=== PATIENT | female | born 1940 ===

== ENCOUNTER 2017-03-12 13:58 | Emergency (ER) | payer MEDICARE ==
[2017-03-12 14:49] VITALS: BMI 25.8
[2017-03-12 14:52] VITALS: TEMP 98.2; O2SAT 100
--- NOTE | 2017-03-12 15:16 | ED PDOC ---
Arrival/HPI - General Chief Complaint: Abdominal Pain Time Seen by Provider: 03/12/17 14:55 Historian: Patient - History of Present Illness Narrative History of Present Illness (Text): 03/12/17 15:13 76 y/o female, pmh including htn/dm/arthritic, nkda, bib daughter, c/o lt. sided abdominal pain on and off x 5-6 years. Pt has been having lt. lower quadrant pelvic pain for the past 5-6 years, last episode about 3 days ago, no nausea or vomiting, no diarrhea, no cough, no chest pain or shortness of breath , no palpitation, no dizziness, no other medical or psychological complaints. Past Medical History - Provider Review Nursing Documentation Reviewed: Yes - Infectious Disease Hx of Infectious Diseases: None - Cardiac Hx Hypertension: Yes - Endocrine/Metabolic Hx Diabetes Mellitus Type 2: Yes - Psychiatric Hx Substance Use: No - Surgical History Hx Hysterectomy: Yes - Anesthesia Hx Anesthesia: Yes Hx Anesthesia Reactions: No Hx Malignant Hyperthermia: No Family/Social History - Physician Review Nursing Documentation Reviewed: Yes Family/Social History: Unknown Family HX Smoking Status: Never Smoked Hx Alcohol Use: No Hx Substance Use: No Allergies/Home Meds Allergies/Adverse Reactions: Allergies shrimp Allergy (Verified 03/12/17 14:49) RASH Review of Systems - Review of Systems Constitutional: absent: Fatigue, Fevers Respiratory: absent: SOB, Cough, Sputum Cardiovascular: absent: Chest Pain, Palpitations Gastrointestinal: Abdominal Pain. absent: Diarrhea, Nausea, Vomiting Genitourinary Female: absent: Dysuria, Frequency Musculoskeletal: absent: Arthralgias Neurological: absent: Headache, Dizziness, Focal Weakness Physical Exam Vital Signs Reviewed: Yes Vital Signs Temp Pulse Resp BP Pulse Ox 03/12/17 16:46 69 18 158/69 H 100 03/12/17 15:34 74 18 165/74 H 100 03/12/17 14:52 98.2 F 84 18 167/76 H 100 Temperature: Afebrile Blood Pressure: Hypertensive Pulse: Regular Respiratory Rate: Normal Appearance: Positive for: Well-Appearing, Non-Toxic, Comfortable Pain Distress: Mild Mental Status: Positive for: Alert and Oriented X 3 - Systems Exam Head: Present: Atraumatic, Normocephalic Pupils: Present: PERRL Extroacular Muscles: Present: EOMI Conjunctiva: Present: Normal Mouth: Present: Moist Mucous Membranes Neck: Present: Normal Range of Motion Respiratory/Chest: Present: Clear to Auscultation, Good Air Exchange. No: Respiratory Distress, Accessory Muscle Use Cardiovascular: Present: Regular Rate and Rhythm, Normal S1, S2. No: Murmurs Abdomen: Present: Tenderness (mild +ttp on the lt. middle/lower quadrant region. ), Normal Bowel Sounds. No: Distention, Peritoneal Signs, Rebound, Guarding Genitourinary/Pelvic Exam: Present: Other (Pt. deferred. ) Back: Present: Normal Inspection. No: CVA Tenderness, Midline Tenderness Upper Extremity: Present: Normal Inspection. No: Cyanosis, Edema Lower Extremity: Present: Normal Inspection. No: Edema Neurological: Present: GCS=15, Speech Normal, Motor Func Grossly Intact, Gait Normal, Memory Normal Skin: Present: Warm, Dry, Normal Color. No: Rashes Psychiatric: Present: Alert, Oriented x 3, Normal Insight, Normal Concentration Medical Decision Making ED Course and Treatment: 03/12/17 15:16 -labs/lipase/ua -EKG -CT abdomen and pelvis with IV contrast -Transvaginal sonogram -IVF -observe and reassess 03/12/17 16:22 -Pt. declined transvaginal, will change to pelvic sonogram. 03/12/17 20:26 -EKG: NSR @ 74 BPM, no ST elevation or depression, no T wave inversion. -Labs are non-significant -UA show mild +UTI -Pelvic sonogram is limited study, recommend transvaginal but the patient declined as she has no pain now. -CT Abdomen and pelvis show diverticula with colitis vs. diverticulitis. -Cipro (adverse reaction including possible Achilles tendon rupture explained to the patient which she accepts the risk) and flagyl ordered. -I offered transvaginal sonogram and pelvic examination again which she declined , stated that she has no pain now. -I explained the entire CT results with the patient and the family members. -Discharge home with pepcid, cipro, flagyl, stay hydrated, high fiber diet (eat more fruits and vegatables), follow up with your own pmd and GI within 2 days, return to the ER for any new or worsening signs or symptoms. - Lab Interpretations Lab Results: 03/12/17 15:37 03/12/17 17:05 Lab Results 03/12/17 17:05: Sodium 142, Potassium 4.6, Chloride 105, Carbon Dioxide 25, Anion Gap 17, BUN 9, Creatinine 0.6, Est GFR ( Amer) > 60, Est GFR (Non- Af Amer) > 60, Random Glucose 111 H, Calcium 9.4, Total Bilirubin 1.0, AST 63 H , ALT 41, Alkaline Phosphatase 127, Lactate Dehydrogenase 582, Total Creatine Kinase 79, Troponin I < 0.01, Total Protein 8.2, Albumin 4.4, Globulin 3.8, Albumin/Globulin Ratio 1.2, Lipase 58 03/12/17 15:37: Urine Color Straw, Urine Appearance Sl cloudy, Urine pH 6.0, Ur Specific [place] <= 1.005, Urine Protein Negative, Urine Glucose (UA) Negative, Urine Ketones Negative, Urine Blood Negative, Urine Nitrate Negative, Urine Bilirubin Negative, Urine Urobilinogen 0.2, Ur Leukocyte Esterase Small H, Urine RBC Negative, Urine WBC 1 - 3, Ur Epithelial Cells 1 - 3, Urine Bacteria Many 03/12/17 15:37: WBC 11.0, RBC 4.60, Hgb 12.7, Hct 37.8, MCV 82.2, MCH 27.6, MCHC 33.6, RDW 13.6, Plt Count 246, MPV 9.6, Gran % 66.2, Lymph % (Auto) 23.2, [place] % (Auto) 8.5 H, Eos % (Auto) 1.9, Baso % (Auto) 0.2, Gran # 7.27 H, Lymph # 2.6, [place] # 0.9 H, Eos # 0.2, Baso # 0.02 I have reviewed the lab results: Yes Interpretation: Abnormal lab values (+UTI) - RAD Interpretation Radiology Orders: 03/12/17 15:12 ABD & PELVIS IV CONTRAST ONLY [CT] Stat PELVIS ULTRASOUND [US] Stat Pelvic sonogram: HISTORY: Lt. sided pelvic pain x 5-6 years COMPARISON: None available. TECHNIQUE: Transabdominal pelvic ultrasound FINDINGS: Examination limited by bowel gas. UTERUS: Measures 6.7 x 2.0 x 2.9 cm. ENDOMETRIUM: Measures approximately 3 mm in diameter. CERVIX: Cervix length measures approximately 2.9 cm. RIGHT OVARY: Measures approximately 2.2 x 1.6 x 1.4 cm. Question presence of a right ovarian cyst measuring approximately 1 cm in maximum dimension; not adequately visualized on the submitted views. LEFT OVARY: Not visualized. FREE FLUID: No significant free fluid noted. OTHER FINDINGS: None. IMPRESSION: Examination markedly limited due to bowel gas. The left ovary is not visualized. Limited visualization of the right ovary. Question presence of 1 cm cyst. Recommend transvaginal ultrasound for further evaluation. [employer] Worker: Radiologist - EKG Interpretation EKG Interpretation (Text): 03/12/17 15:34 NSR @ 74 BPM, no ST elevation or depression, no T wave inversion. Interpreted by ED Physician: Yes Type: 12 lead EKG Comparison: No previous EKG avail. - Medication Orders Current Medication Orders: Discontinued Medications Ciprofloxacin (Cipro) 500 mg PO ONCE STA PRN Reason: Protocol Stop: 03/12/17 20:21 Iohexol (Omnipaque 350 100 Ml) Confirm Administered Dose 350 mg .ROUTE .STK-MED ONE Stop: 03/12/17 18:48 Metronidazole (Flagyl) 500 mg PO STAT STA PRN Reason: Protocol Stop: 03/12/17 20:21 - PA / MANUAL ARTS THERAPIST / Resident Statement / has reviewed & agrees with the documentation as recorded. Disposition/Present on Arrival - Present on Arrival Any Indicators Present on Arrival: No History of DVT/PE: No History of Uncontrolled Diabetes: No Urinary Catheter: No History of Decub. Ulcer: No History Surgical Site Infection Following: None - Disposition Have Diagnosis and Disposition been Completed?: Yes Diagnosis: UTI (urinary tract infection), Diverticulitis, Gastritis Disposition: HOME/ ROUTINE Disposition Time: 20:29 Patient Plan: Discharge Patient Problems: Current Active Problems Problem Status Onset UTI (urinary tract infection) Acute Condition: GOOD Additional Instructions: -Discharge home with pepcid, cipro, flagyl, stay hydrated, high fiber diet (eat more fruits and vegatables), follow up with your own pmd and GI within 2 days, return to the ER for any new or worsening signs or symptoms. Prescriptions: Ciprofloxacin [Cipro] 500 mg PO BID #16 tab Famotidine [Pepcid] 1 tab PO BID #20 tab Metronidazole [Flagyl] 500 mg PO TID #30 tablet Referrals: Chioma Mora DO [Primary Care Provider] - Follow up with primary Benito Church MD [Staff Provider] - Follow up with primary Forms: WORK NOTE
[2017-03-12 15:56] LABS: BASO # 0.02 K/mm3 (0.0-2.0); BASO % 0.2 % (0.0-3.0); EOS # 0.2 (0.0-0.7); EOS % 1.9 % (1.5-5.0); GRAN # 7.27 (1.4-6.5); GRAN % 66.2 % (50.0-68.0); HEMOGLOBIN 12.7 gm/dL (12.0-16.0); LYMPH # 2.6 (1.2-3.4); LYMPH % 23.2 % (22.0-35.0); MEAN CELL VOLUME 82.2 fL (80.0-105.0); MEAN CORPUSCULAR HEMOGLOBIN 27.6 pg (25.0-35.0); MEAN CORPUSCULAR HGB CONC 33.6 g/dl (31.0-37.0); MEAN PLATELET VOLUME 9.6 fl (7.0-11.0); MONO # 0.9 (0.1-0.6); MONO % 8.5 % (1.0-6.0); PLATELET COUNT 246 10^3/uL (120.0-450.0); RED CELL DISTRIBUTION WIDTH 13.6 % (11.5-14.5)
[2017-03-12 15:58] LABS: URINE BILIRUBIN NEGATIVE (NEGATIVE); URINE BLOOD NEGATIVE (NEGATIVE); URINE COLOR STRAW (YELLOW); URINE GLUCOSE (UA) NEGATIVE (NEGATIVE); URINE LEUKOCYTE ESTERASE SMALL Leu/uL (NEGATIVE); URINE NITRATE NEGATIVE (NEGATIVE); URINE PROTEIN NEGATIVE mg/dL (<30 mg/dL); URINE UROBILINOGEN 0.2 E.U./dL (<1 E.U./dL)
[2017-03-12 16:13] LABS: URINE APPEARANCE SL CLOUDY (CLEAR)
[2017-03-12 16:14] LABS: URINE BACTERIA MANY (NEG); URINE RBC NEGATIVE /hpf (0-2)
[2017-03-12 17:38] LABS: ALB/GLOB RATIO 1.2 (1.1-1.8); ALBUMIN 4.4 g/dL (3.0-4.8); ALT/SGPT 41 U/L (7-56); AST/SGOT 63 U/L (15-39); BLOOD UREA NITROGEN 9 mg/dL (7-21); CALCIUM 9.4 mg/dL (8.4-10.5); GFR AFRICAN-AMERICAN > 60; GFR NON-AFRICAN AMERICAN > 60; LIPASE 58 U/L (23-300)
[2017-03-12 17:50] LABS: TROPONIN I < 0.01 ng/mL
--- NOTE | 2017-03-12 18:22 | US ---
HISTORY: Lt. sided pelvic pain x 5-6 years COMPARISON: None available. TECHNIQUE: Transabdominal pelvic ultrasound FINDINGS: Examination limited by bowel gas. UTERUS: Measures 6.7 x 2.0 x 2.9 cm. ENDOMETRIUM: Measures approximately 3 mm in diameter. CERVIX: Cervix length measures approximately 2.9 cm. RIGHT OVARY: Measures approximately 2.2 x 1.6 x 1.4 cm. Question presence of a right ovarian cyst measuring approximately 1 cm in maximum dimension; not adequately visualized on the submitted views. LEFT OVARY: Not visualized. FREE FLUID: No significant free fluid noted. OTHER FINDINGS: None. IMPRESSION: Examination markedly limited due to bowel gas. The left ovary is not visualized. Limited visualization of the right ovary. Question presence of 1 cm cyst. Recommend transvaginal ultrasound for further evaluation.
--- NOTE | 2017-03-12 18:36 | CARD ---
APPROVED REPORT EKG Measurement Heart [id number] <Conclusion> Normal sinus rhythm Normal ECG
[2017-03-12] MEDS ORDERED: Iohexol 350 MG/100 ML VIAL ONE (18:47)
--- NOTE | 2017-03-12 20:06 | CT ---
EXAM: CT Abdomen and Pelvis With Intravenous Contrast CLINICAL HISTORY: The patient age is 76 years old and is female; Pain; Abdominal pain; Acute; Additional info: Llq pelvic pain x 5-6 years Facility exam id and description: Ct [id number] abd pelvis iv contrast only TECHNIQUE: Axial computed tomography images of the abdomen and pelvis with intravenous contrast. This CT exam was performed using one or more of the following dose reduction techniques: automated exposure control, adjustment of the mA and/or kV according to patient size, and/or use of iterative reconstruction technique. Coronal and sagittal reformatted images were created and reviewed. CONTRAST: 100 mL of OMNI 350 administered intravenously. EXAM DATE/TIME: 03/12/2017 3:12 PM COMPARISON: US - ABDOMEN COMPLETE 09/16/2015 8:49:24 AM FINDINGS: Lower thorax: There is a small hiatal hernia. ABDOMEN: Liver: There is hypodense fatty infiltration of the liver. Gallbladder and bile ducts: Mild isodensity is visualized within the gallbladder, suggestive of sludge. No discrete gallstones. Pancreas: Normal contour, without acute peripancreatic stranding. Spleen: No splenomegaly. Adrenals: No mass. Kidneys and ureters: There is a small hypodense probable cyst at the midpole the left kidney measuring 1.2 x 0.6 x 0.7 cm. No hydronephrosis bilaterally. Stomach and bowel: Multiple colonic diverticula are identified. There is wall thickening of the sigmoid colon with pericolonic stranding, suggestive of colitis or diverticulitis. Additional pathology cannot be excluded. There is mild wall thickening of the antrum of the stomach, suggestive of gastritis. Appendix: No findings to suggest acute appendicitis. PELVIS: Bladder: No mass. Reproductive: Unremarkable as visualized. ABDOMEN and PELVIS: Intraperitoneal space: No free air. No loculated collection of fluid to suggest abscess. Bones/joints: Hypertrophic degenerative changes are noted within the spine. Osteopenia. Soft tissues: There is a peripherally calcified density within the subcutaneous tissues of the left flank. Vasculature: There is atherosclerotic calcification of the abdominal aorta. No abdominal aortic aneurysm. Lymph nodes: No enlarged lymph nodes. IMPRESSION: 1. Multiple colonic diverticula are identified. There is wall thickening of the sigmoid colon with pericolonic stranding, suggestive of colitis or diverticulitis. Additional pathology cannot be excluded. 2. There is hypodense fatty infiltration of the liver. 3. There is mild wall thickening of the antrum of the stomach, suggestive of gastritis. 4. Additional CT findings described above.
[2017-03-12 20:52] VITALS: BP 153/75; PULSE 72; RESP 17
== END 2017-03-12 21:02 | disposition home or self-care (01) ==
LOC: ED 13:58
DX: N39.0 Urinary tract infection, site not specified (principal); K57.92 Diverticulitis of intestine, part unspecified, without perforation or abscess without bleeding; K29.70 Gastritis, unspecified, without bleeding; E11.9 Type 2 diabetes mellitus without complications; I10 Essential (primary) hypertension
CPT/HCPCS: 74177; 76856; 80053; 81001; 82550; 83615; 83690; 84484; 85025; 93005; 99285; Q9967

== ENCOUNTER 2018-05-05 16:04 | Emergency (ER) | payer MEDICARE ==
[2018-05-05 16:04] VITALS: BMI 25.8
[2018-05-05 16:53] VITALS: TEMP 98.3
--- NOTE | 2018-05-05 17:05 | ED PDOC ---
Arrival/HPI - General Chief Complaint: Shortness Of Breath Time Seen by Provider: 05/05/18 16:48 Historian: Patient - History of Present Illness Narrative History of Present Illness (Text): 05/05/18 16:53 77 year old female, with past medical history of hypertension, diabetes and arthritis, presents to the Emergency department complaining of left sided chest tightness associated with subjective dyspnea since past 2 days. Patient informs unchanged symptoms prompting her to present to the Emergency department for medical evaluation. Patient denies any cardiac history. Patient denies any fevers, chills, headache, dizziness, cough, abdominal pain, nausea, vomiting, diarrhea, back pain, neck pain, or any other complaints. Time/Duration: < week (2 days) Symptom Onset: Gradual Symptom Course: Unchanged Quality: Tightness Activities at Onset: Light Context: Home Past Medical History - Provider Review Nursing Documentation Reviewed: Yes - Infectious Disease Hx of Infectious Diseases: None - Reproductive Menopause: Yes - Cardiac Hx Hypertension: Yes - Endocrine/Metabolic Hx Diabetes Mellitus Type 2: Yes - Psychiatric Hx Substance Use: No - Surgical History Hx Hysterectomy: Yes - Anesthesia Hx Anesthesia: Yes Hx Anesthesia Reactions: No Hx Malignant Hyperthermia: No Family/Social History - Physician Review Nursing Documentation Reviewed: Yes Family/Social History: No Known Family HX Smoking Status: Never Smoked Hx Alcohol Use: No Hx Substance Use: No Allergies/Home Meds Allergies/Adverse Reactions: Allergies shrimp Allergy (Verified 03/12/17 14:49) RASH Review of Systems - Physician Review All systems were reviewed & negative as marked: Yes - Review of Systems Constitutional: absent: Fevers Respiratory: SOB. absent: Cough Cardiovascular: Chest Pain, LA[place]O Gastrointestinal: absent: Abdominal Pain, Diarrhea, Nausea, Vomiting Musculoskeletal: absent: Back Pain, Neck Pain Neurological: absent: Headache, Dizziness Physical Exam Vital Signs Reviewed: Yes Vital Signs Temp Pulse Resp BP Pulse Ox 05/06/18 00:28 82 18 153/70 H 98 05/05/18 18:13 82 18 155/70 H 99 05/05/18 16:45 98.3 F 85 20 184/74 H 99 05/05/18 16:40 18 Temperature: Afebrile Blood Pressure: Hypertensive Pulse: Regular Respiratory Rate: Normal Appearance: Positive for: Well-Appearing, Non-Toxic, Comfortable Pain Distress: None Mental Status: Positive for: Alert and Oriented X 3 - Systems Exam Head: Present: Atraumatic, Normocephalic Pupils: Present: PERRL Extroacular Muscles: Present: EOMI Conjunctiva: Present: Normal Mouth: Present: Moist Mucous Membranes Neck: Present: Normal Range of Motion Respiratory/Chest: Present: Clear to Auscultation, Good Air Exchange. No: Respiratory Distress, Accessory Muscle Use Cardiovascular: Present: Regular Rate and Rhythm, Normal S1, S2. No: Murmurs Abdomen: No: Tenderness, Distention, Peritoneal Signs Back: Present: Normal Inspection Upper Extremity: Present: Normal Inspection. No: Cyanosis, Edema Lower Extremity: Present: Normal Inspection. No: Edema Neurological: Present: GCS=15, CN II-XII Intact, Speech Normal Skin: Present: Warm, Dry, Normal Color. No: Rashes Psychiatric: Present: Alert, Oriented x 3, Normal Insight, Normal Concentration Medical Decision Making ED Course and Treatment: 05/05/18 16:53 Impression: 77 year old female presents to the Emergency department complaining of chest tightness associated with subjective dyspnea. Plan: -- EKG -- Labs -- Chest X-ray -- Urinalysis -- Reassess and disposition Prior Visits: Notes and results from previous visits were reviewed. Progress Notes: 05/05/18 16:53 EKG: Ordered, reviewed, and independently interpreted the EKG. Rate : 98 BPM Rhythm : NSR Interpretation : No ST-segment elevations or depressions, no T-wave inversions, normal intervals. 05/05/18 17:[address] Renteria, who is aware and agrees with Emergency department management plan, requests to update him once labs are back. 05/07/18 19:37 case endorsed pending results of chem and ct. - Lab Interpretations Microbiology Results: Microbiology Results 05/05/18 18:18 Urine,Clean Catch Urine Culture - Final Gram Negative Mario Alberto Lab Results: 05/05/18 17:48 05/05/18 17:48 Lab Results 05/05/18 17:48: Sodium 143, Potassium 5.1 H, Chloride 105, Carbon Dioxide 25, Anion Gap 19, BUN 9, Creatinine 0.6 L, Est GFR ( Amer) > 60, Est GFR (Non -Af Amer) > 60, Random Glucose 157 H, Calcium 9.6, Magnesium 1.5 L, Total Bilirubin 0.8, AST 55 H, ALT 16, Alkaline Phosphatase 122, Lactate Dehydrogenase 591, Total Creatine Kinase 51, Troponin I < 0.01, NT-Pro-B Natriuret Pep 137, Total Protein 8.9 H, Albumin 4.9 H, Globulin 4.0, Albumin/ Globulin Ratio 1.2 05/05/18 17:48: PT 11.9, INR 1.04, APTT 30.1, D-Dimer, Quantitative 304 H 05/05/18 17:48: WBC 9.3, RBC 4.77, Hgb 13.1, Hct 39.6, MCV 83.0, MCH 27.5, MCHC 33.1, RDW 13.5, Plt Count 315, MPV 10.8, Gran % 53.9, Lymph % (Auto) 32.7, [place] % (Auto) 9.0 H, Eos % (Auto) 4.2, Baso % (Auto) 0.2, Gran # 5.01, Lymph # (Auto ) 3.0, [place] # (Auto) 0.8 H, Eos # (Auto) 0.4, Baso # (Auto) 0.02 05/05/18 16:35: Urine Color Yellow, Urine Appearance Clear, Urine pH 5.5, Ur Specific [place] <= 1.005, Urine Protein Negative, Urine Glucose (UA) Negative, Urine Ketones Negative, Urine Blood Negative, Urine Nitrate Negative, Urine Bilirubin Negative, Urine Urobilinogen 0.2, Ur Leukocyte Esterase Large H, Urine RBC 0 - 2, Urine WBC 20 - 25, Ur Epithelial Cells 4 - 5, Urine Bacteria Mod - RAD Interpretation Radiology Orders: 05/05/18 16:58 CHEST TWO VIEWS (PA/LAT) [RAD] Stat 05/05/18 18:55 ANGIO CHEST PE PROTOCOL [CT] Stat - Medication Orders Current Medication Orders: Discontinued Medications Aspirin (Aspirin) 325 mg PO STAT STA Stop: 05/05/18 17:07 Last Admin: 05/05/18 18:02 Dose: 325 mg Ceftriaxone Sodium (Rocephin 1 Gram Ivpb) 1 gm in 100 mls @ 100 mls/hr IVPB STAT STA PRN Reason: Protocol Stop: 05/05/18 19:32 Last Admin: 05/05/18 19:16 Dose: 100 mls/hr eMAR Start Stop Document 05/05/18 19:16 SF (Rec: 05/05/18 19:17 [id number]) Intravenous Solution Start Date 05/05/18 Start Time 19:17 End Date 05/05/18 End time 20:17 Total Infusion Time 60 - Scribe Statement The provider has reviewed the documentation as recorded by the Scribe Santiago Daugherty. All medical record entries made by the Scribe were at my direction and personally dictated by me. I have reviewed the chart and agree that the record accurately reflects my personal performance of the history, physical exam, medical decision making, and the department course for this patient. I have also personally directed, reviewed, and agree with the discharge instructions and disposition. Disposition/Present on Arrival - Present on Arrival Any Indicators Present on Arrival: No History of DVT/PE: No History of Uncontrolled Diabetes: No Urinary Catheter: No History of Decub. Ulcer: No History Surgical Site Infection Following: CABG - Mediastinitis, None - Disposition Have Diagnosis and Disposition been Completed?: Yes Diagnosis: UTI (urinary tract infection), Chest pain Disposition: HOME/ ROUTINE Disposition Time: 12:00 Condition: STABLE Discharge Instructions (ExitCare): Urinary Tract Infection, Adult (DC), Chest Pain (ED) Print Language: ISRAELI Prescriptions: Cephalexin [cephalexin] 500 mg PO BID 5 Days #10 cap Referrals: Chioma Mora DO [Primary Care Provider] - Follow up with primary Forms: [employer] (Latvian)
[2018-05-05 17:45] LABS: PH,URINE 5.5 (4.7-8.0); URINE BILIRUBIN NEGATIVE (NEGATIVE); URINE BLOOD NEGATIVE (NEGATIVE); URINE GLUCOSE (UA) NEGATIVE (NEGATIVE); URINE LEUKOCYTE ESTERASE LARGE Leu/uL (NEGATIVE); URINE PROTEIN NEGATIVE mg/dL (<30 mg/dL); URINE UROBILINOGEN 0.2 E.U./dL (<1 E.U./dL)
[2018-05-05 17:51] LABS: URINE COLOR YELLOW (YELLOW)
[2018-05-05 17:52] LABS: URINE APPEARANCE CLEAR (CLEAR)
[2018-05-05 17:54] LABS: URINE BACTERIA MOD (NEG); URINE RBC 0 - 2 /hpf (0-2); URINE WBC 20 - 25 /hpf (0-6)
[2018-05-05 18:13] VITALS: PULSE 82; RESP 18
[2018-05-05 18:30] LABS: BASO # 0.02 K/mm3 (0.0-2.0); BASO % 0.2 % (0.0-3.0); EOS # 0.4 (0.0-0.7); EOS % 4.2 % (1.5-5.0); GRAN # 5.01 (1.4-6.5); GRAN % 53.9 % (50.0-68.0); HEMOGLOBIN 13.1 g/dL (12.0-16.0); LYMPH % 32.7 % (22.0-35.0); MEAN CORPUSCULAR HEMOGLOBIN 27.5 pg (25.0-35.0); MEAN CORPUSCULAR HGB CONC 33.1 g/dl (31.0-37.0); MEAN PLATELET VOLUME 10.8 fl (7.0-11.0); MONO # 0.8 (0.1-0.6); RBC 4.77 10^6/uL (3.5-6.1); RED CELL DISTRIBUTION WIDTH 13.5 % (11.5-14.5); WHITE BLOOD COUNT 9.3 10^3/ul (4.5-11.0)
[2018-05-05] MEDS ORDERED: cefTRIAXone 1 gm 1 GM/100 ML BAG IVPB STA (18:33)
[2018-05-05 18:39] LABS: INR 1.04; PARTIAL THROMBOPLASTIN TIME 30.1 Seconds (25.1-36.5); PROTHROMBIN TIME 11.9 SECONDS (9.4-12.5)
[2018-05-05 18:54] LABS: CALCIUM 9.6 mg/dL (8.4-10.5); GFR NON-AFRICAN AMERICAN > 60
[2018-05-05 18:57] LABS: ALB/GLOB RATIO 1.2 (1.1-1.8); ALBUMIN 4.9 g/dL (3.0-4.8); ALT/SGPT 16 U/L (7-56); AST/SGOT 55 U/L (14-36); BLOOD UREA NITROGEN 9 mg/dL (7-21)
[2018-05-05 19:05] LABS: B-TYPE NATRIURETIC PEPTIDE 137 pg/mL (0-450)
[2018-05-05 19:07] LABS: TROPONIN I < 0.01 ng/mL
--- NOTE | 2018-05-05 19:19 | ED PDOC ---
Physical Exam Vital Signs Reviewed: Yes Vital Signs Temp Pulse Resp BP Pulse Ox 05/05/18 18:13 82 18 155/70 H 99 05/05/18 16:45 98.3 F 85 20 184/74 H 99 05/05/18 16:40 18 Temperature: Afebrile Blood Pressure: Normal Pulse: Regular Respiratory Rate: Normal Appearance: Positive for: Well-Appearing, Non-Toxic, Comfortable Pain Distress: None Mental Status: Positive for: Alert and Oriented X 3 - Systems Exam Head: Present: Atraumatic, Normocephalic Pupils: Present: PERRL Extroacular Muscles: Present: EOMI Conjunctiva: Present: Normal Mouth: Present: Moist Mucous Membranes Neck: Present: Normal Range of Motion Respiratory/Chest: Present: Clear to Auscultation, Good Air Exchange. No: Respiratory Distress, Accessory Muscle Use Cardiovascular: Present: Regular Rate and Rhythm, Normal S1, S2. No: Murmurs Abdomen: No: Tenderness, Distention, Peritoneal Signs Back: Present: Normal Inspection Upper Extremity: Present: Normal Inspection. No: Cyanosis, Edema Lower Extremity: Present: Normal Inspection. No: Edema Neurological: Present: GCS=15, CN II-XII Intact, Speech Normal Skin: Present: Warm, Dry, Normal Color. No: Rashes Psychiatric: Present: Alert, Oriented x 3, Normal Insight, Normal Concentration Medical Decision Making ED Course and Treatment: 05/05/18 19:05 Case endorsed to me by Dr. Pacheco for pending [place] X-ray result and reassessment. Patient is a 77 year old female, who presented to the Emergency department earlier today for left sided chest tightness. Patient is resting in bed in no acute distress. Patient presents no new medical complaints. 05/05/18 19:55 CTPE pending. Troponin negative. UA positive for large bacteria. Antibiotics ordered from previous provider. 05/06/18 01:10 CTPE negative for PE. Patient reevaluated and feels better. Patient and family updated on findings and are amenable to discharge. Scripts provided. She is advised to follow up with her PCP. - Lab Interpretations Lab Results: 05/05/18 17:48 05/05/18 17:48 Lab Results 05/05/18 17:48: Sodium 143, Potassium 5.1 H, Chloride 105, Carbon Dioxide 25, Anion Gap 19, BUN 9, Creatinine 0.6 L, Est GFR ( Amer) > 60, Est GFR (Non -Af Amer) > 60, Random Glucose 157 H, Calcium 9.6, Magnesium 1.5 L, Total Bilirubin 0.8, AST 55 H, ALT 16, Alkaline Phosphatase 122, Lactate Dehydrogenase 591, Total Creatine Kinase 51, Troponin I < 0.01, NT-Pro-B Natriuret Pep 137, Total Protein 8.9 H, Albumin 4.9 H, Globulin 4.0, Albumin/ Globulin Ratio 1.2 05/05/18 17:48: PT 11.9, INR 1.04, APTT 30.1, D-Dimer, Quantitative 304 H 05/05/18 17:48: WBC 9.3, RBC 4.77, Hgb 13.1, Hct 39.6, MCV 83.0, MCH 27.5, MCHC 33.1, RDW 13.5, Plt Count 315, MPV 10.8, Gran % 53.9, Lymph % (Auto) 32.7, [place] % (Auto) 9.0 H, Eos % (Auto) 4.2, Baso % (Auto) 0.2, Gran # 5.01, Lymph # (Auto ) 3.0, [place] # (Auto) 0.8 H, Eos # (Auto) 0.4, Baso # (Auto) 0.02 05/05/18 16:35: Urine Color Yellow, Urine Appearance Clear, Urine pH 5.5, Ur Specific [place] <= 1.005, Urine Protein Negative, Urine Glucose (UA) Negative, Urine Ketones Negative, Urine Blood Negative, Urine Nitrate Negative, Urine Bilirubin Negative, Urine Urobilinogen 0.2, Ur Leukocyte Esterase Large H, Urine RBC 0 - 2, Urine WBC 20 - 25, Ur Epithelial Cells 4 - 5, Urine Bacteria Mod - RAD Interpretation Radiology Orders: 05/05/18 16:58 CHEST TWO VIEWS (PA/LAT) [RAD] Stat 05/05/18 18:55 ANGIO CHEST PE PROTOCOL [CT] Stat - Medication Orders Current Medication Orders: Discontinued Medications Aspirin (Aspirin) 325 mg PO STAT STA Stop: 05/05/18 17:07 Last Admin: 05/05/18 18:02 Dose: 325 mg Ceftriaxone Sodium (Rocephin 1 Gram Ivpb) 1 gm in 100 mls @ 100 mls/hr IVPB STAT STA PRN Reason: Protocol Stop: 05/05/18 19:32 Last Admin: 05/05/18 19:16 Dose: 100 mls/hr eMAR Start Stop Document 05/05/18 19:16 SF (Rec: 05/05/18 19:[address] [facility] [id number]) Intravenous Solution Start Date 05/05/18 Start Time 19:17 End Date 05/05/18 End time 20:17 Total Infusion Time 60 - Scribe Statement The provider has reviewed the documentation as recorded by the Scribe Santiago Daugherty. All medical record entries made by the Scribe were at my direction and personally dictated by me. I have reviewed the chart and agree that the record accurately reflects my personal performance of the history, physical exam, medical decision making, and the department course for this patient. I have also personally directed, reviewed, and agree with the discharge instructions and disposition. Disposition/Present on Arrival - Present on Arrival Any Indicators Present on Arrival: No History of DVT/PE: No History of Uncontrolled Diabetes: No Urinary Catheter: No History of Decub. Ulcer: No History Surgical Site Infection Following: CABG - Mediastinitis, None - Disposition Have Diagnosis and Disposition been Completed?: Yes Diagnosis: UTI (urinary tract infection) Disposition Time: 01:09 Patient Plan: Discharge Condition: STABLE Discharge Instructions (ExitCare): Urinary Tract Infection, Adult (DC) Print Language: MACANESE Prescriptions: Cephalexin [cephalexin] 500 mg PO BID 5 Days #10 cap Referrals: Chioma Mora DO [Primary Care Provider] - Follow up with primary Forms: [employer] (South Korean)
[2018-05-05] MEDS ORDERED: Iohexol 350 MG/100 ML VIAL ONE (21:24)
[2018-05-06 01:11] VITALS: BP 153/70; O2SAT 98
--- NOTE | 2018-05-06 09:07 | RAD ---
Date of service: 05/05/2018 HISTORY: cp COMPARISON: No prior. TECHNIQUE: Chest PA and lateral FINDINGS: LUNGS: No active pulmonary disease. PLEURA: No significant pleural effusion identified. No pneumothorax apparent. CARDIOVASCULAR: Normal. OSSEOUS STRUCTURES: No significant abnormalities. VISUALIZED UPPER ABDOMEN: Normal. OTHER FINDINGS: None. IMPRESSION: No active disease.
--- NOTE | 2018-05-06 10:35 | CT ---
Date of service: 05/06/2018 PROCEDURE: CT Chest with contrast (Pulmonary Angiogram) HISTORY: sob elevated dimer COMPARISON: None available. TECHNIQUE: Axial computed tomography images were obtained of the chest in the pulmonary arterial phase of enhancement. Coronal and sagittal reformatted images were created and reviewed This CT exam was performed using one or more of the following dose reduction techniques: Automated exposure control, adjustment of the mA and/or kV according to patient size, and/or use of iterative reconstruction technique. Intravenous contrast dose: 100 cc of Omni 350 Radiation dose: Total exam DLP = 330 mGy-cm. FINDINGS: PULMONARY ARTERIES: Unremarkable. No pulmonary embolism. AORTA: No acute findings. No thoracic aortic aneurysm. Minimal coronary artery calcification LUNGS: Unremarkable. No nodule, mass or pulmonary consolidation. PLEURAL SPACES: Unremarkable. No effusion or pneumothorax. HEART: Unremarkable. No cardiomegaly. No significant pericardial effusion. LYMPH NODES: No lymphadenopathy. BONES, CHEST WALL: Unremarkable. No fracture or destructive lesion OTHER FINDINGS: The report concurs with the preliminary [facility] report IMPRESSION: Unremarkable CT pulmonary angiogram. No pulmonary embolus.
--- NOTE | 2018-05-06 13:58 | CARD ---
APPROVED REPORT Date of service: 05/05/2018 EKG Measurement Heart [id number] <Conclusion> Normal sinus rhythm with sinus arrhythmia Low voltage QRS consider inferior infarct, age indeterminate
== END 2018-05-06 01:15 | disposition home or self-care (01) ==
LOC: ED 16:04
DX: R07.9 Chest pain, unspecified (principal); N39.0 Urinary tract infection, site not specified; I10 Essential (primary) hypertension; E11.9 Type 2 diabetes mellitus without complications
CPT/HCPCS: 71046; 71275; 80053; 81001; 82550; 83615; 83735; 83880; 84484; 85025; 85378; 85610; 85730; 87086; 93005; 96365; 99285; J0696; Q9967

== ENCOUNTER 2018-09-04 03:30 | Emergency (ER) | payer MEDICARE ==
[2018-09-04 03:46] VITALS: RESP 18; TEMP 98.8; O2SAT 100
[2018-09-04 03:48] VITALS: BMI 22.6
[2018-09-04] MEDS ORDERED: TraMADol/Apap 37.5/325 mg Tab PO STA (04:00)
--- NOTE | 2018-09-04 04:02 | ED PDOC ---
Arrival/HPI - General Chief Complaint: Lower Extremity Problem/Injury Time Seen by Provider: 09/04/18 03:45 Historian: Patient - History of Present Illness Narrative History of Present Illness (Text): 09/04/18 04:00 Yusra Harris is a 77 year old female, whose past medical history include hypertension, diabetes, and arthritis, who presents to the emergency department complaining of right leg pain status post fall. Relative states patient fell outside on to her right leg yesterday evening at 16:00 and has been complaining of right knee/proximal thigh pain. Patient reports difficulty ambulating secondary to pain and states she did not take any medication at home for pain. Patient denies any fever, chills, chest pain, shortness of breath, abdominal pain, nausea, vomiting, neck pain, headache, dizziness, or any other complaints. Time/Duration: 24 hours Symptom Onset: Gradual Symptom Course: Unchanged Activities at Onset: Rest Context: Home Past Medical History - Provider Review Nursing Documentation Reviewed: Yes - Infectious Disease Hx of Infectious Diseases: None - Cardiac Hx Hypertension: Yes - Pulmonary Hx Respiratory Disorders: No - Neurological Hx Neurological Disorder: No - HEENT Hx HEENT Disorder: No - Renal Hx Renal Disorder: No - Endocrine/Metabolic Hx Endocrine Disorders: No Hx Diabetes Mellitus Type 2: Yes - Hematological/Oncological Hx Blood Disorders: No - Psychiatric Hx Substance Use: No - Surgical History Hx Hysterectomy: Yes - Anesthesia Hx Anesthesia: Yes Hx Anesthesia Reactions: No Hx Malignant Hyperthermia: No Family/Social History - Physician Review Nursing Documentation Reviewed: Yes Family/Social History: Unknown Family HX Smoking Status: Never Smoked Hx Alcohol Use: No Hx Substance Use: No Allergies/Home Meds Allergies/Adverse Reactions: Allergies shrimp Allergy (Verified 09/04/18 03:51) RASH Home Medications: Home Meds Medication Instructions Recorded Confirmed Benazepril HCl [Lotensin] 40 mg PO DAILY 09/04/18 09/04/18 Metoprolol Tartrate 25 mg PO DAILY 09/04/18 09/04/18 Sitagliptin Phos/Metformin HCl 1 tab PO BID 09/04/18 09/04/18 [Janumet 50-1,000 mg Tablet] hydroCHLOROthiazide [Hydrodiuril] 25 mg PO DAILY 09/04/18 09/04/18 Review of Systems - Physician Review All systems were reviewed & negative as marked: Yes - Review of Systems Constitutional: Normal. absent: Fevers Eyes: Normal ENT: Normal Respiratory: Normal. absent: SOB, Cough Cardiovascular: Normal. absent: Chest Pain Gastrointestinal: Normal. absent: Abdominal Pain, Diarrhea, Nausea, Vomiting Genitourinary Female: Normal. absent: Dysuria, Frequency, Hematuria, Urine Output Changes Musculoskeletal: Arthralgias (+right knee/distal thigh pain) Skin: Normal. absent: Rash Neurological: Normal. absent: Headache, Dizziness Endocrine: Normal Hemo/Lymphatic: Normal Psychiatric: Normal Physical Exam Vital Signs Reviewed: Yes Vital Signs Temp Pulse Resp BP Pulse Ox 09/04/18 03:44 98.8 F 89 18 133/78 100 Temperature: Afebrile Blood Pressure: Normal Pulse: Regular Respiratory Rate: Normal Appearance: Positive for: Well-Appearing, Non-Toxic, Comfortable Pain Distress: None Mental Status: Positive for: Alert and Oriented X 3 - Systems Exam Head: Present: Atraumatic, Normocephalic Pupils: Present: PERRL Extroacular Muscles: Present: EOMI Conjunctiva: Present: Normal Mouth: Present: Moist Mucous Membranes Neck: Present: Normal Range of Motion. No: Meningeal Signs Respiratory/Chest: Present: Clear to Auscultation, Good Air Exchange. No: Respiratory Distress, Accessory Muscle Use Cardiovascular: Present: Regular Rate and Rhythm, Normal S1, S2. No: Murmurs Abdomen: No: Tenderness, Distention, Peritoneal Signs Back: Present: Pain with Leg Raise. No: CVA Tenderness, Midline Tenderness, Paraspinal Tenderness Upper Extremity: Present: Normal Inspection. No: Cyanosis, Edema Lower Extremity: Present: NORMAL PULSES, Normal ROM, Swelling (Swelling to right distal thigh/knee), Neurovascularly Intact, Capillary Refill < 2 s. No: Edema, Deformity, Temperature Abnormalties Neurological: Present: GCS=15, CN II-XII Intact, Speech Normal Skin: Present: Warm, Dry, Normal Color. No: Rashes Psychiatric: Present: Alert, Oriented x 3, Normal Insight, Normal Concentration Medical Decision Making ED Course and Treatment: 09/04/18 04:00 Impression: 77 year old female complaining of pain to left hip/back pain. Plan: -- Ultracet -- XR Right Femur -- XR Right Hip -- XR Right Knee -- Reassess and disposition Prior Visits: Notes and results from previous visits were reviewed. Progress Notes: 09/04/18 05:20 Reviewed radiology, XR Right Femur shows arthritis changes, no acute processes. XR Right Hip shows arthritis changes, no acute processes. XR Right Knee shows arthritis changes, no acute processes. - RAD Interpretation Deputy Commissioner: ED Physician - Scribe Statement The provider has reviewed the documentation as recorded by the Scribe Marisela Steen Provider Scribe Attestation: All medical record entries made by the Scribe were at my direction and personally dictated by me. I have reviewed the chart and agree that the record accurately reflects my personal performance of the history, physical exam, medical decision making, and the department course for this patient. I have also personally directed, reviewed, and agree with the discharge instructions and disposition. Disposition/Present on Arrival - Present on Arrival Any Indicators Present on Arrival: No History of DVT/PE: No History of Uncontrolled Diabetes: No Urinary Catheter: No History of Decub. Ulcer: No History Surgical Site Infection Following: CABG - Mediastinitis, None - Disposition Have Diagnosis and Disposition been Completed?: Yes Diagnosis: Knee contusion Disposition: HOME/ ROUTINE Disposition Time: 05:34 Condition: GOOD Discharge Instructions (ExitCare): Contusion (DC), Knee Sprain (DC) Print Language: CHINESE Additional Instructions: use knee brace 4 to 5 days Prescriptions: Walker [Rolling Walker] 1 dev XX PRN #1 dev Tramadol HCl [Ultram] 50 mg PO QID #12 tab Referrals: Ian Gale III, MD [Medical Doctor] - Follow up with primary Chioma Mora DO [Primary Care Provider] - Follow up with primary Forms: [employer] (Croatian)
[2018-09-04 06:48] VITALS: BP 131/85; PULSE 85
--- NOTE | 2018-09-04 09:38 | RAD ---
Date of service: 09/04/2018 PROCEDURE: Right Knee Radiographs. HISTORY: fall COMPARISON: None. FINDINGS: BONES: Normal. No fracture. JOINTS: There is mild joint space narrowing in the medial compartment. Degenerative changes are seen in the patellofemoral joint with osteophyte formation JOINT EFFUSION: Small joint effusion OTHER FINDINGS: None. IMPRESSION: There is mild joint space narrowing in the medial compartment. Degenerative changes are seen in the patellofemoral joint with osteophyte formation
--- NOTE | 2018-09-04 09:39 | RAD ---
Date of service: 09/04/2018 PROCEDURE: Right Femur Radiographs. HISTORY: fall COMPARISON: None. TECHNIQUE: AP and Lateral Radiographs of the right femur. FINDINGS: FEMUR: Normal. No fracture. SOFT TISSUES: Normal. OTHER FINDINGS: None. IMPRESSION: Unremarkable radiographs of the right femur.
--- NOTE | 2018-09-04 09:40 | RAD ---
Date of service: 09/04/2018 PROCEDURE: Pelvis and right hip HISTORY: fall COMPARISON: TECHNIQUE: Three views FINDINGS: No evidence of fracture. No significant degenerative changes. IMPRESSION: Negative study
== END 2018-09-04 06:00 | disposition home or self-care (01) ==
LOC: ED 03:30
DX: S80.01XA Contusion of right knee, initial encounter (principal); W19.XXXA Unspecified fall, initial encounter; I10 Essential (primary) hypertension; E11.9 Type 2 diabetes mellitus without complications